=== PATIENT | female | born 1960 | race Caucasian/White ===

== ENCOUNTER 2024-04-17 14:35 | Emergency (ER) | payer MEDICARE, BC ==
[~2024-04-17] VITALS: Ht 157.5 cm; Wt 54.4 kg
[~2024-04-17 14:35] MED LIST: ESCI5TAB PO; TRAM50TA PO
[2024-04-17] MEDS ORDERED: CLIN300C12 PO (15:06)
[2024-04-17 15:39] VITALS: BP 135/40; TEMP 98.6; O2SAT 99
== END 2024-04-17 15:39 | disposition home or self-care (01) ==
LOC: ER 14:42
DX: S61.411A Laceration without foreign body of right hand, initial encounter (principal); F41.9 Anxiety disorder, unspecified; S61.216A Laceration without foreign body of right little finger without damage to nail, initial encounter; M79.7 Fibromyalgia; Z79.899 Other long term (current) drug therapy; Z88.0 Allergy status to penicillin; Z88.5 Allergy status to narcotic agent; W26.8XXA Contact with other sharp object(s), not elsewhere classified, initial encounter; Y93.89 Activity, other specified; Y92.89 Other specified places as the place of occurrence of the external cause; Y99.8 Other external cause status
CPT/HCPCS: 12001; 29130; 99283; A6403